=== PATIENT | male | born 1995 | race Caucasian/White ===

== ENCOUNTER 2019-09-16 18:31 | Emergency (ER) | payer SELFPAY ==
[~2019-09-16] VITALS: Ht 172.7 cm; Wt 69.9 kg
[2019-09-16 19:08] VITALS: BP 139/77
--- NOTE | 2019-09-16 19:09 | NUR ---
PT TAKEN BACK TO LOBBY
--- NOTE | 2019-09-16 21:07 | NUR ---
PATIENT CALLED TO BED NO RESPONSE PATIENT LEFT WITHOUT BEING SEEN BY DR. CASH. NO FURTHER CARE PROVIDED FOR PATIENT.
--- NOTE | 2019-09-16 21:12 | NUR ---
CALLED FOR THE SECOND TIME , NO RESPONSE
--- NOTE | 2019-09-16 21:17 | NUR ---
CALLED FOR THE THIRD TIME , NO RESPONSE
== END 2019-09-16 21:07 | disposition left against medical advice (07) ==
LOC: MED 18:31
DX: S61.218A Laceration without foreign body of other finger without damage to nail, initial encounter (principal); Z53.21 Procedure and treatment not carried out due to patient leaving prior to being seen by health care provider; X58.XXXA Exposure to other specified factors, initial encounter; Y93.89 Activity, other specified; Y92.89 Other specified places as the place of occurrence of the external cause; Y99.8 Other external cause status

== ENCOUNTER 2019-09-17 13:38 | Emergency (ER) | payer SELFPAY ==
[~2019-09-17] VITALS: Ht 177.8 cm; Wt 70.3 kg
[2019-09-17 13:48] VITALS: BP 152/85
--- NOTE | 2019-09-17 14:03 | NUR ---
PT TO CHAIR A WITH STEADY GAIT
--- NOTE | 2019-09-17 14:05 | NUR ---
PAIN 4/10 TO SITE
--- NOTE | 2019-09-17 14:05 | NUR ---
C/O R FINGER PAIN POST LACERATION FROM OCEAN RESCUE LIEUTENANT X 1 DAY. APPROX 3 CM LACERATION TO 2ND AND 3RD DIGITS. NO ACTIVE BLEEDING AT THIS TIME. +CMS. PT ALERT AND AWAKE, VS STABLE. PT IS FRISIAN SPEAKING
[2019-09-17] MEDS ORDERED: BACITRACIN OINT 500 UNITS/GM PKT TP ONE ×2 (14:20)
--- NOTE | 2019-09-17 14:34 | NUR ---
DUNG EMT IRRIGATED SITE
--- NOTE | 2019-09-17 14:34 | NUR ---
RIGHT HAND 2ND AND 3RD DIGIT DIANA TAPE APPLIED BY DUNG EMT. PULSES WNL
--- NOTE | 2019-09-17 14:49 | NUR ---
NADR TO TOPICAL BACITRACIN. PAIN 4/10
[2019-09-17 14:50] VITALS: BP 149/78
--- NOTE | 2019-09-17 14:50 | NUR ---
Patient discharged with v/s stable. Written INSTRUCTIONS GIVEN IN [place] and verbal after care instructions given and explained REGARDING LACERATION IN [place]. Patient alert, oriented and verbalized understanding of instructions. Ambulatory with steady gait. All questions addressed prior to discharge. ID band removed. Patient advised to follow up with PMD. Rx of TOPICAL BACITRACIN, IBUPROFEN, AND KEFLEX given. Patient educated on indication of medication including possible reaction and side effects. Opportunity to ask questions provided and answered. PT GIVEN EXCUSE FROM PHYSICAL ACTIVTY THROUGH Sep
[2019-09-17] MEDS ORDERED: IBUPROFEN 600 MG TAB PO SCH (15:00)
[2019-09-17] MEDS ORDERED: BACITRACIN OINT 500 UNITS/GM PKT TP SCH (15:00)
== END 2019-09-17 14:50 | disposition home or self-care (01) ==
LOC: MED 13:38
DX: S61.212A Laceration without foreign body of right middle finger without damage to nail, initial encounter (principal); S61.210A Laceration without foreign body of right index finger without damage to nail, initial encounter; W31.9XXA Contact with unspecified machinery, initial encounter; Y93.89 Activity, other specified; Y92.89 Other specified places as the place of occurrence of the external cause; Y99.8 Other external cause status
CPT/HCPCS: 99283

== ENCOUNTER 2019-11-04 15:35 | Inpatient (IN) | payer MEDICAID ==
[~2019-11-04] VITALS: Ht 177.8 cm; Wt 78.9 kg
[2019-11-04 15:36] VITALS: BP 122/98
--- NOTE | 2019-11-04 15:48 | NUR ---
24 y/o M C/C LEFT ANKLE INJURY WITH MARBLE X 5 DAYS AGO. PAIN 04/28. PER PT A ROCK TYPE MARBLE FELL ON ANKLE, PT CAME TO ER [facility] X 2 DAYS AGO AND LEFT WITHOUT BEEN SEEN. PT TAKEN MEDICATION WITH NO RELIEF OF PAIN. PT NKA. NO HX. NO RX. NO N/V/D. LEFT ANKLE AREA WITH REDNESS, SWOLLEN. PT WITH WDL CMS, ROM. SIDE RAIL X1. FAMILY AT BEDSIDE.
[2019-11-04] MEDS ORDERED: NACL 0.9% 1,000 ML IV SCH (15:58)
[2019-11-04] MEDS ORDERED: KETOROLAC 30 MG/ML VIAL IVP ONE (16:00)
--- NOTE | 2019-11-04 16:00 | NUR ---
ERMD AT BEDSIDE
--- NOTE | 2019-11-04 16:11 | NUR ---
LAB AT BEDSIDE
[2019-11-04] MEDS ORDERED: VANCOMYCIN 1,000 MG in DEXTROSE 5% 250 ML IV ONE (16:30)
[2019-11-04] MEDS ORDERED: VANCOMYCIN 1,000 MG VIAL ONE (16:38)
[2019-11-04 16:39] LABS: BASOPHILS # (AUTO) 0.2 K/uL (0.00-0.22); BASOPHILS % (AUTO) 0.9 % (0.0-2.0); EOSINOPHILS # (AUTO) 0.2 K/uL (0-0.4); HEMATOCRIT 41.4 % (36-52); HEMOGLOBIN 14.1 g/dL (12.0-18.0); LYMPHOCYTES # (AUTO) 2.1 K/uL (2.0-11.5); LYMPHOCYTES % (AUTO) 12.6 % (20.5-51.1); MEAN CORPUSCULAR HEMOGLOBIN 31 pg (27-31); MEAN CORPUSCULAR HGB CONC 34 g/dL (33-37); MEAN CORPUSCULAR VOLUME 91.3 fL (80-94); MONOCYTES # (AUTO) 1.2 K/uL (0.8-1.0); MONOCYTES % (AUTO) 7.3 % (1.7-9.3); NEUTROPHILS % (AUTO) 78.2 % (42.2-75.2); PLATELET COUNT (AUTO) 330 K/uL (140-450); RED BLOOD CELL COUNT(AUTO) 4.53 MIL/uL (4.20-6.10); RED CELL DISTRIBUTION WIDTH 12.1 % (11.6-13.7); WHITE BLOOD COUNT (AUTO) 16.6 K/uL (4.8-10.8)
--- NOTE | 2019-11-04 16:47 | NUR ---
PT TAKEN TO CT VIA DANIEL
[2019-11-04 17:06] LABS: ALBUMIN 3.5 g/dL (3.4-5.0); ANION GAP 12.7 (8-16); CARBON DIOXIDE 28.8 mmol/L (21-32); CREATININE 0.6 mg/dL (0.6-1.3); POTASSIUM 3.5 mmol/L (3.5-5.1); TOTAL BILIRUBIN 0.4 mg/dL (0.0-1.0)
[2019-11-04 17:07] LABS: PROTHROMBIN TIME 9.7 secs (10.8-13.4)
[2019-11-04] MEDS ORDERED: HYDROcodone/APAP 7.5/325 MG 1 TAB PO PRN (18:50)
[2019-11-04] MEDS ORDERED: VANCOMYCIN PER PHARMACY MC PRN (18:50)
[2019-11-04] MEDS ORDERED: ACETAMINOPHEN 325 MG TAB PO PRN (18:50)
[2019-11-04] MEDS ORDERED: ONDANSETRON 4 MG/2 ML VIAL IVP PRN (18:50)
--- NOTE | 2019-11-04 19:27 | NUR ---
REPORT GIVEN TO MALINA BROOKS FOR CONTINUITY OF CARE
[2019-11-04 19:33] LABS: FREE T4 (FREE THYROXINE) 0.97 ng/dL (0.76-1.46); MAGNESIUM 1.7 mg/dL (1.8-2.4); PHOSPHORUS 2.9 mg/dL (2.5-4.9); THYROID STIMULATING HORMONE 1.94 uIU/mL (0.34-3.74)
[2019-11-04 20:00] VITALS: BP 114/69
--- NOTE | 2019-11-04 20:00 | NUR ---
RECEIVED PT FROM ER VIA WHEELCHAIR PT CUBAN SPEAKER AAOX4 AMBULATORY WITH QUILL FIXER, IV ON LEFT HAND GAUGE # 22 PATENT, LEFT FOOT CELLULITIS AND SCABS ON LEFT TOES 3TH AND 4TH PT IS ORIENTED TO THE FLOOR CALL LIGHT WITHIN REACH PT ALREADY GOT RADHA
--- NOTE | 2019-11-04 20:00 | NUR ---
Patient will be admitted to care of DR XAVIER. Admited to [facility]. Will go to room 126B. Belongings list completed. Report to PRINCE BROOKS.
[2019-11-04] MEDS: DOCUSATE SODIUM 100 MG GELCAP PO SCH (21:14)
[2019-11-04] MEDS: NACL 0.9% 1,000 ML IV SCH (21:15)
--- NOTE | 2019-11-04 22:00 | NUR ---
PT AFTER EATING HIS DINNER REMAIN STBLE SLEEPING WELL NOT SIGNS OF PAIN NO;JASBIR
[2019-11-05] VITALS: BP 116/69
--- NOTE | 2019-11-05 02:00 | NUR ---
PT VOIDING WELL NOT DISTRESS ;NOTED REMAIN STBLE
[2019-11-05] MEDS ORDERED: MAG SULF 2000 MG/WATER PREMIX 50 ML IV ONE (03:00)
[2019-11-05] MEDS ORDERED: VANCOMYCIN 1GM/DEXT 5% PREMIX 200 ML IV SCH (04:00)
[2019-11-05 04:03] LABS: APPEARANCE,URINE CLEAR (CLEAR); BILIRUBIN,URINE NEGATIVE (NEGATIVE); BLOOD, URINE NEGATIVE (NEGATIVE); COLOR,URINE YELLOW (YELLOW); LEUKOCYTE ESTERASE ,URINE NEGATIVE (NEGATIVE); NITRITE, URINE NEGATIVE (NEGATIVE); UGLUCOSE NEGATIVE (NEGATIVE)
[2019-11-05 04:12] LABS: BARBITURATE, URINE NEG. ng/ml (NEG <=200); BENZODIAZEPINE, URINE NEG. ng/mL (NEG <=200); CANNABINOID, URINE POS. ng/mL (NEG <=50); COCAINE, URINE NEG. ng/mL (NEG <=300); OPIATE, URINE NEG. ng/mL (NEG <=2000); PHENCYCLIDINE SCREEN,URINE NEG. ng/mL (NEG <=25)
--- NOTE | 2019-11-05 05:00 | NUR ---
SPONGE BATH GIVEN LINEN CHANGED IV ON LEFT HAND INFUSING WELL
[2019-11-05 06:24] LABS: BASOPHILS % (AUTO) 0.4 % (0.0-2.0); EOSINOPHILS # (AUTO) 0.3 K/uL (0-0.4); EOSINOPHILS % (AUTO) 2.3 % (0.0-4.0); HEMATOCRIT 38.1 % (36-52); HEMOGLOBIN 13.1 g/dL (12.0-18.0); LYMPHOCYTES # (AUTO) 1.4 K/uL (2.0-11.5); LYMPHOCYTES % (AUTO) 11.5 % (20.5-51.1); MEAN CORPUSCULAR HEMOGLOBIN 31 pg (27-31); MEAN CORPUSCULAR HGB CONC 34 g/dL (33-37); MEAN CORPUSCULAR VOLUME 90.8 fL (80-94); MONOCYTES % (AUTO) 8.5 % (1.7-9.3); NEUTROPHILS # (AUTO) 9.3 K/uL (1.8-7.7); NEUTROPHILS % (AUTO) 77.3 % (42.2-75.2); PLATELET COUNT (AUTO) 271 K/uL (140-450)
[2019-11-05 06:33] LABS: ANION GAP 11.1 (8-16); CARBON DIOXIDE 28.5 mmol/L (21-32); CREATININE 0.7 mg/dL (0.6-1.3); POTASSIUM 4.6 mmol/L (3.5-5.1)
--- NOTE | 2019-11-05 06:46 | NUR ---
PT WILL BE ENDORSED TO DAY SHIFT NURSE FOR D CONTINUE OF CARE
[2019-11-05] MEDS: NACL 0.9% 1,000 ML IV SCH ×2 (07:00→15:34)
[2019-11-05] MEDS ORDERED: IBUPROFEN 800 MG TAB PO PRN (07:05)
--- NOTE | 2019-11-05 07:25 | NUR ---
RECEIVED BEDSIDE REPORT FROM SUPERVISOR WIRE ROPE FABRICATION NURSE PRINCE. PT IS ASLEEP IN BED, NO S/S OF DISTRESS, ON ROOM AIR, IV SITE L HAND 22 G INFUSING MAG-RIDER AT THIS TIME. NOTED L FOOT EDEMA, SLIGHT REDNESS AROUND THE ANKLE, AND DRY SCABBING BELOW THE 2ND AND 3RD TOES. PT C/O MILD LLE PAIN, NOT REQUESTING PAIN MEDS AT THIS TIME. CALL LIGHT IS WITHIN REACH. WILL CONTINUE TO MONITOR.
[2019-11-05 08:00] VITALS: BP 113/69
--- NOTE | 2019-11-05 08:47 | NUR ---
PATIENT HAS BEEN SCREENED AND CATEGORIZED LOW NUTRITION RISK. PATIENT WILL BE SEEN WITHIN 7 DAYS OF ADMISSION. 11/11/[address]
[2019-11-05] MEDS: DOCUSATE SODIUM 100 MG GELCAP PO SCH ×2 (09:15→20:35)
[2019-11-05] MEDS: LACTOBACILLUS RHAMNOSUS GG 1 EACH CAP PO SCH (09:15)
[2019-11-05] MEDS: VANCOMYCIN 1,000 MG in DEXTROSE 5% 250 ML IV SCH ×2 (09:15→20:36)
--- NOTE | 2019-11-05 09:23 | NUR ---
AM MEDS ADMINISTERED. PT TOLERATED WELL. 0800 VANCOMYCIN IS INFUSING. PT IS RESTING COMFORTABLY IN BED.
--- NOTE | 2019-11-05 10:30 | NUR ---
Area Counselor Note: Basic Screen: Yes High Risk DC Screen Yes Name: REID CHAU Home Relationship: MOTHER Pre-Admission Living Arrangements: Lives with Other Other: N/A Prior ADL Independent Current Home Health Name/Tel: N/A Current DME/02 Name/Tel: N/A Current Hospice Name/Tel: N/A Current Dialysis Name/Tel: N/A Healthcare Decision Maker: Patient Advance Directive No - REFUSED Physician Orders for Life Sustaining Treatment Form No Patient/Family Have Educational Needs No Information Taught: Community Resources Person Taught: Patient Teaching Tools: Verbal Factors Affecting Learning: None Participation Level: Active Evaluation: Verbalizes Understanding Needs Additional Education: No Discipline: Case Mgt/Social Svcs Tentative Discharge Plan/Destination: No Needs Identified Will require assistance post discharge: No Referred to [employer]: No Tentative Discharge Plan Summary: Patient is a 24-year-old male admitted for left foot cellulitis. Patient has no significant PMHX. Patient was admitted from home where he lives iwth his mother. SW met with patient at bedside to verify demographics with patient with СВЕТЛАНА Shoemaker to translate to Portuguese. Patient reports living with his mother Reid Chau. Patient reports no history of mental health and a history of marijuana and methamphetamine abuse. SW provided substance abuse resources. Patient's tentative discharge plan is to return home. No further needs identified. Signature: LUIGI Ventura Date: Nov 05, 2019 Time: 10:29
[2019-11-05 10:43] LABS: MAGNESIUM 1.7 mg/dL (1.8-2.4); PHOSPHORUS 2.9 mg/dL (2.5-4.9)
--- NOTE | 2019-11-05 10:44 | NUR ---
PT C/O 06/28 PAIN IN THE L FOOT. FOOT IS VISIBLY MORE SWOLLEN AND RED THAN THIS AM. I CALLED DR JASMINE TO SEE IF HE CAN ORDER SOMETHING STRONG FOR PT'S PAIN. PER MD, PT CAN ONLY HAVE MOTRIN OR TYLENOL FOR PAIN AT THIS TIME. MOTRIN PRN ADMINISTERED. WILL REASSESS PT WITHIN AN HOUR.
--- NOTE | 2019-11-05 12:52 | NUR ---
PT ATE 100% OF LUNCH, NO C/O PAIN AT THIS TIME. PT IS COMFORTABLE.
[2019-11-05] MEDS ORDERED: MAGNESIUM OXIDE 400 MG TAB PO SCH (14:00)
--- NOTE | 2019-11-05 15:28 | NUR ---
DISCHARGE PLANNING: THIS IS A 24 Y/O MALE PATIENT FROM HOME, WHO CAME IN DUE TO LEFT ANKLE PAIN X 7 DAYS. NO PERTINENT MEDICAL HISTORY. INITIAL DIAGNOSIS OF LEFT FOOT CELLULITIS. CURRENT LABS INCLUDE WBC 12.0, H/H 13.1/38.1 AND LIPASE 71. ON VANCOMYCIN. SURGICAL CONSULT IN PLACE. DC PLAN BACK TO HOME ONCE STABLE. Addendum: 11/06/19 at 1522 by Zuly Gee CM CURRENT LABS INCLUDE WBC 9.6, H/H 13.7/39.9, NA/K 141/4.5, BUN/CREA 13/0.8 AND MAG 1.7. BLOOD C/S SHOWED NO GROWTH AFTER 24 HOURS. URINE C/S PENDING. SURGICAL CONSULT WITH DR BEACH IN PLACE. S/P I&D AND DEBRIDEMENT OF LEFT FOOT ABSCESS. ON VANCOMYCIN AND ZOSYN. DC PLAN PENDING ON PATIENT'S RESPONSE TO TREATMENT.
[2019-11-05 16:00] VITALS: BP 102/49
--- NOTE | 2019-11-05 17:46 | NUR ---
PT SLEEPING COMFORTABLY, NO C/O PAIN OR S/S OF DISTRESS AT THIS TIME.
--- NOTE | 2019-11-05 19:10 | NUR ---
ENDORSED PT TO DATA DESIGNER NURSE IN STABLE CONDITION.
--- NOTE | 2019-11-05 19:30 | NUR ---
RECEIVED BEDSIDE REPORT FROM DAY SHIFT NURSE. PATIENT IS AWAKE, ALERT, AND COOPERATIVE. RESPIRATION EVEN UNLABORED ON ROOM AIR. NO DISTRESS NOTED. SKIN IS WARM AND DRY. IV PATENT AND INTACT. PLAN OF CARE WAS DISCUSSED. ALL SAFETY MEASURES IN PLACE. BED IS AT LOW POSITION. CALL LIGHT WITHIN REACH AND VERBALIZES ITS USE. WILL CONTINUE TO MONITOR.
--- NOTE | 2019-11-05 20:10 | NUR ---
INITIAL ASSESSMENT DONE. LEFT FOOT CELLULITIS INTACT AND SWOLLEN NOTED. WILL CONTINUE TO MONITOR.
--- NOTE | 2019-11-05 20:39 | NUR ---
ALL SCHEDULED MEDS WERE GIVEN PER ORDER. NO ASE NOTED. WILL CONTINUE TO MONITOR.
--- NOTE | 2019-11-05 22:52 | NUR ---
CHECKED PATIENT. PATIENT IN BED AWAKE RESPIRATION EVEN UNLABORED ON ROOM AIR. NO DISTRESS NOTED. WILL CONTINUE TO MONITOR.
[2019-11-06] VITALS: BP 104/55
[2019-11-06] MEDS ORDERED: PIPERACILLIN/TAZOBACTAM 4.5 GM VIAL IV ONE ×2 (00:15→05:34)
[2019-11-06] MEDS: PIPERACILLIN/TAZOBACTAM 4.5 GM in DEXTROSE 5% 100 ML IV SCH ×5 (00:19→18:59)
--- NOTE | 2019-11-06 00:25 | NUR ---
VITALS WERE TAKEN. 1ST DOSE OF ZOSYN IV GIVEN PER ORDER. WILL CONTINUE TO MONITOR.
[2019-11-06] MEDS: NACL 0.9% 1,000 ML IV SCH ×4 (00:44→21:15)
--- NOTE | 2019-11-06 02:30 | NUR ---
CHECKED PATIENT. PATIENT SLEEPING RESPIRATION EVEN UNLABORED ON ROOM AIR. NO DISTRESS NOTED. WILL CONTINUE TO MONITOR.
--- NOTE | 2019-11-06 04:46 | NUR ---
PATIENT IS HUNGRY ASKING FOR FOOD. REMINDED HIM THAT HIS HAVING A SURGERY TODAY AND THAT HE NEEDS TO REMAIN NPO. VERBALIZES UNDERSTANDING. WILL CONTINUE TO MONITOR.
--- NOTE | 2019-11-06 07:15 | NUR ---
ENDORSED PATIENT TO DAY SHIFT NURSE. PATIENT IS IN STABLE CONDITION.
--- NOTE | 2019-11-06 07:25 | NUR ---
RECEIVED REPORT FROM DREDGE HAND NURSE FOR CONTINUATION OF CARE.
[2019-11-06 08:00] VITALS: BP 163/57
[2019-11-06 08:25] LABS: BASOPHILS # (AUTO) 0.1 K/uL (0.00-0.22); BASOPHILS % (AUTO) 0.9 % (0.0-2.0); EOSINOPHILS # (AUTO) 0.4 K/uL (0-0.4); HEMATOCRIT 39.9 % (36-52); HEMOGLOBIN 13.7 g/dL (12.0-18.0); LYMPHOCYTES # (AUTO) 1.2 K/uL (2.0-11.5); LYMPHOCYTES % (AUTO) 12.4 % (20.5-51.1); MEAN CORPUSCULAR HEMOGLOBIN 32 pg (27-31); MEAN CORPUSCULAR HGB CONC 34 g/dL (33-37); MEAN CORPUSCULAR VOLUME 91.8 fL (80-94); MONOCYTES # (AUTO) 0.8 K/uL (0.8-1.0); MONOCYTES % (AUTO) 7.9 % (1.7-9.3); NEUTROPHILS # (AUTO) 7.2 K/uL (1.8-7.7); NEUTROPHILS % (AUTO) 74.8 % (42.2-75.2); PLATELET COUNT (AUTO) 304 K/uL (140-450); RED BLOOD CELL COUNT(AUTO) 4.35 MIL/uL (4.20-6.10); RED CELL DISTRIBUTION WIDTH 12.3 % (11.6-13.7); WHITE BLOOD COUNT (AUTO) 9.6 K/uL (4.8-10.8)
[2019-11-06 08:40] LABS: ANION GAP 10.2 (8-16); CARBON DIOXIDE 31.3 mmol/L (21-32); CREATININE 0.8 mg/dL (0.6-1.3); POTASSIUM 4.5 mmol/L (3.5-5.1)
[2019-11-06 09:03] LABS: MAGNESIUM 1.7 mg/dL (1.8-2.4); PHOSPHORUS 3.8 mg/dL (2.5-4.9)
[2019-11-06] MEDS ORDERED: SEVOFLURANE 250 ML BTL INH ONE (09:22)
[2019-11-06] MEDS ORDERED: PROPOFOL 200 MG/20 ML VIAL IV ONE (09:22)
[2019-11-06] MEDS ORDERED: MIDAZOLAM 2 MG/2 ML VIAL ONE (09:22)
[2019-11-06] MEDS ORDERED: fentaNYL 0.05 MG/ML VIAL ONE (09:22)
[2019-11-06] MEDS ORDERED: BUPIVACAINE-MPF 0.25% 30 ML VIAL INJ ONE (09:45)
[2019-11-06] MEDS ORDERED: ONDANSETRON 4 MG/2 ML VIAL IVP PRN (09:50)
[2019-11-06] MEDS ORDERED: HYDROmorphone 1 MG/ML AMP IVP PRN ×2 (09:50→10:05)
[2019-11-06] MEDS ORDERED: MORPHINE SULFATE 2 MG/ML SYR IVP PRN (10:05)
[2019-11-06] MEDS ORDERED: MORPHINE SULFATE 4 MG/ML SYR IV PRN (10:05)
[2019-11-06] MEDS ORDERED: HYDROcodone/APAP 5/325 MG 1 TAB TAB PO PRN (10:05)
--- NOTE | 2019-11-06 11:00 | NUR ---
RETURNED FROM OR FOR I&D, UNCOMPLICATED PER OR NURSE. PATIENT STARTED ON VANCOMYCIN, TOLERATING WELL. PATIENT REPORTS MINOR PAIN, BUT REFUSES PAIN MEDICATION. PATIENT REPORTS FEELING DROWSY. LEFT ANKLE IS WRAPPED AND PACKED. WILL CONTINUE TO MONITOR.
[2019-11-06] MEDS: VANCOMYCIN 1,000 MG in DEXTROSE 5% 250 ML IV SCH ×2 (11:05→18:44)
[2019-11-06] MEDS: LACTOBACILLUS RHAMNOSUS GG 1 EACH CAP PO SCH (11:06)
[2019-11-06] MEDS: DOCUSATE SODIUM 100 MG GELCAP PO SCH ×2 (11:07→21:14)
[2019-11-06] MEDS ORDERED: MAG SULF 2000 MG/WATER PREMIX 50 ML IV SCH (11:09)
--- NOTE | 2019-11-06 13:00 | NUR ---
PATIENT IS RESTING IN BED, REPORTS LOW PAIN IN THE LEFT FOOT/ANKLE SP I&D. PATIENT IS RECEIVING IV MAGNESIUM FOR LOW MAGNESIUM 1.7. PATIENT IS TOLERATING WELL AT THIS TIME. WILL CONTINUE TO MONITOR.
--- NOTE | 2019-11-06 14:12 | NUR ---
Late entry. Confirmed with RN that Vancomycin IV completed at 181
--- NOTE | 2019-11-06 15:00 | NUR ---
PATIENT REPORTS PAIN AT THIS TIME DUE TO MAGNESIUM IV, REPORTS SEVERE PAIN, PAIN MEDICATION GIVEN, TOLERATED WELL. HELD MAGNESIUM, APPROXIMATELY 20 ML'S LEFT TO ADMINISTER. WILL CONTINUE TO MONITOR.
[2019-11-06 16:00] VITALS: BP 120/58
--- NOTE | 2019-11-06 19:25 | NUR ---
BEDSIDE SHIFT REPORT GIVEN TO ADMISSIONS CLERK NURSE FOR CONTINUATION OF CARE.
--- NOTE | 2019-11-06 19:26 | NUR ---
RECEIVED BEDSIDE REPORT FROM DAY SHIFT NURSE MIREILLE RN, PT STABLE, NO DISTRESS NOTED, IV TO L WRIST 22G PATENT INTACT, PT ON ROOM AIR, NO SOB NOTED, PT SLEEPING, INITIAL ASSESSMENT DONE, ALL SAFETY PRECAUTION MET, CALL LIGHT WITHIN REACH, WILL CONTINUE TO MONITOR.
--- NOTE | 2019-11-06 20:40 | NUR ---
PT REFUSED IVF, PT REFUSED ANY MEDICATION THROUGH IV, ATTEMPT TO EXPLAIN TO PT USING BOX TRUCK WASHER #[id number], EXPLAINED THAT HE NEEDS IV INFUSION FOR HIS ANTIBIOTICS, PT YELLED AND REFUSED MEDICATION, EXPLAINED TO PT THAT THE INFECTION COULD GO TO HIS BLOOD STREAM AND HE CAN FROM IT, PT STILL REFUSED, NOTIFIED DR. BANDAR DR. STATED UNDERSTANDING, TO ATTEMPT TO ASK THE PT AGAIN WHEN MEDICATION DUE. PT SLEEPING, NO DISTRESS NOTED, CALL LIGHT WITHIN REACH, WILL CONTINUE TO MONITOR.
--- NOTE | 2019-11-06 21:14 | NUR ---
DUE MEDICATION ADMINISTERED, PT TOLERATED WELL, NO DISTRESS NOTED, CALL LIGHT WITHIN REACH, WILL CONTINUE TO MONITOR.
[2019-11-07] VITALS: BP 101/67
--- NOTE | 2019-11-07 00:07 | NUR ---
PT REFUSED IV MEDICATION, NO DISTRESS NOTED, SLEEPING, NOTIFIED DR. BANDAR SERNA STATED UNDERSTANDING, PT RESTING, CALL LIGHT WITHIN REACH, WILL CONTINUE TO MONITOR.
[2019-11-07] MEDS: VANCOMYCIN 1,000 MG in DEXTROSE 5% 250 ML IV SCH ×2 (02:00→10:17)
--- NOTE | 2019-11-07 02:01 | NUR ---
PT REFUSED IV MEDICATION, PT SLEEPING, EDUCATE PT IMPORTANCE OF MEDICATION, PT STILL REFUSED, PT SLEEPING, NO DISTRESS NOTED, CALL LIGHT WITHIN REACH, WILL CONTINUE TO MONITOR.
--- NOTE | 2019-11-07 06:03 | NUR ---
PT WANTS TO LEAVE HOSPITAL AGAINST MEDICAL ADVICE, PT ALREADY TALKED TO DR. SINGH, EXPLAINED DISADVANTAGE OF LEAVING AGAINST MEDICAL ADVICE, PT STATED UNDERSTANDING BUT STILL WANTS TO LEAVE. PT STABLE, NO DISTRESS NOTED, WOUND CLEAN DRY AND INTACT. IV TAKEN OUT. PT SIGNED AMA FORM.
--- NOTE | 2019-11-07 06:16 | NUR ---
PT CHANGED HIS MIND AND STATED HE WILL STAY. PT RESTING, NO DISTRESS NOTED, CALL LIGHT WITHIN REACH.
--- NOTE | 2019-11-07 06:30 | NUR ---
NEW IV INSERTED TO L FA 22G PATENT INTACT, INFUSING WELL, NO DISTRESS NOTED, CALL LIGHT WITHIN REACH, WILL CONTINUE TO MONITOR.
[2019-11-07] MEDS: PIPERACILLIN/TAZOBACTAM 4.5 GM in DEXTROSE 5% 100 ML IV SCH ×3 (06:32)
[2019-11-07 07:24] LABS: MAGNESIUM 1.7 mg/dL (1.8-2.4); PHOSPHORUS 3.4 mg/dL (2.5-4.9)
[2019-11-07] MEDS: NACL 0.9% 1,000 ML IV SCH (07:24)
--- NOTE | 2019-11-07 07:24 | NUR ---
ENDORSED PT TO DAY SHIFT NURSE NORBETRO RN, PT STABLE, NO DISTRESS NOTED, CALL LIGHT WITHIN REACH.
--- NOTE | 2019-11-07 07:25 | NUR ---
RECEIVED BEDSIDE REPORT FROM PM RN PT AWAKE IN BED PT APPEARS STABLE AND IN NO APPARENT DISTRESS. ALL SAFETY MEASURES ARE IN PLACE WILL CONTINUE TO MONITOR. IVF INFUSING IV SITE APPEARS PATENT AND SHOWS NO SIGNS OF INFILTRATION OR INFLAMMATION.
[2019-11-07 07:29] LABS: ANION GAP 10.5 (8-16); CREATININE 0.8 mg/dL (0.6-1.3); POTASSIUM 4.5 mmol/L (3.5-5.1)
[2019-11-07 07:32] LABS: BASOPHILS # (AUTO) 0.1 K/uL (0.00-0.22); BASOPHILS % (AUTO) 0.6 % (0.0-2.0); EOSINOPHILS # (AUTO) 0.3 K/uL (0-0.4); EOSINOPHILS % (AUTO) 3.3 % (0.0-4.0); HEMATOCRIT 45.2 % (36-52); HEMOGLOBIN 15.5 g/dL (12.0-18.0); LYMPHOCYTES # (AUTO) 1.3 K/uL (2.0-11.5); LYMPHOCYTES % (AUTO) 15.2 % (20.5-51.1); MEAN CORPUSCULAR HEMOGLOBIN 32 pg (27-31); MEAN CORPUSCULAR HGB CONC 34 g/dL (33-37); MEAN CORPUSCULAR VOLUME 91.9 fL (80-94); MONOCYTES # (AUTO) 0.7 K/uL (0.8-1.0); NEUTROPHILS # (AUTO) 6.3 K/uL (1.8-7.7); NEUTROPHILS % (AUTO) 72.9 % (42.2-75.2); PLATELET COUNT (AUTO) 326 K/uL (140-450); RED BLOOD CELL COUNT(AUTO) 4.92 MIL/uL (4.20-6.10); RED CELL DISTRIBUTION WIDTH 12.2 % (11.6-13.7); WHITE BLOOD COUNT (AUTO) 8.7 K/uL (4.8-10.8)
[2019-11-07 08:15] VITALS: BP 112/76
[2019-11-07] MEDS: DOCUSATE SODIUM 100 MG GELCAP PO SCH (08:44)
[2019-11-07] MEDS: LACTOBACILLUS RHAMNOSUS GG 1 EACH CAP PO SCH (08:44)
[2019-11-07] MEDS ORDERED: AMOX-1000 PO (09:01)
[2019-11-07] MEDS ORDERED: LACT-81 PO (09:01)
[2019-11-07] MEDS ORDERED: ACET-1182 PO (09:03)
--- NOTE | 2019-11-07 09:15 | NUR ---
FREQUENT ROUNDING ON PT PT AWAKE IN BED PT APPEARS STABLE AND IN NO APPARENT DISTRESS. ALL SAFETY MEASURES ARE IN PLACE WILL CONTINUE TO MONITOR
--- NOTE | 2019-11-07 10:18 | NUR ---
GINA REMY IVP SCANNER BROKEN ON WOW 8 VERIFIED MEDICATION AND DOSAGE. WILL CONTINUE TO MONITOR PT
--- NOTE | 2019-11-07 12:01 | NUR ---
WOUND CONSULT TO RIGHT FOOT S/P I&D ASSESSMENT START BUT NOT COMPLETE. REPORT TO DR. SINGH THE SURGICAL WOUND WITH GAUZES PACKING REMAIN FRESH AND SEEPING SMALL AMOUNT OF SANGUINOUS DRAINAGE, NO ODOR, NARCISA WOUND ERYTHEMA AND SLIGHTLY SWELLING OBSERVED. PER DR. SINGH, REINFORCE DRESSING, AND TEACH PT. WOUND CARE, WILL HAVE PT. FOLLOW UP WITH SURGEON. SPOKE TO COMPRESS MACHINE OPERATOR SHE WILL REQUEST HOME HEALTH FOR WOUND CARE. WOUND CARE TEACHING INSTRUCTIONS TAUGHT TO PT. INCLUDING MONITOR S/S OF INFECTION WITH ALL QUESTION ANSWERED. PRIMARY RN AT BEDSIDE ,WILL DISCHARGE PT. WITH WOUND CARE SUPPLIES. TRIED TO USE BLUE PHONE AND UNABLE TO CONNECT, STAFF NISHANT TRANSLATED IN CRO[place]. PT. VERBALIZES UNDERSTANDING. RECOMMENDATION: -RIGHT FOOT SURGICAL WOUND FLUSH WITH NS. PAT DRY, PACK WITH ADAPTIC DRESSING COVER WITH DRY DRESSING AND WRAP WITH KERLIX ROLL DAILY AND PRN IF SOILING.
--- NOTE | 2019-11-07 12:05 | NUR ---
ATTEMPTED TO DO WOUND CARE WITH [place]ON [place] ENGINEER. BARON STATED THE I&D IS TO FRESH. INFORMED DR. SINGH HE STATED WE WILL HAVE THE PATIENT FOLLOW UP WITH DR. BEACH EARLIER THAN A WEEK. AWA GRAPPLE CREW LEADER WILL ARRANGE FOR HOME HEALTH. HAD CHANNEL PARTNERS INFORM PATIENT AND ANSWER ALL QUESTIONS. SINCE I ADMINISTERED DILAUDID TO PATIENT FOR WOUND CHANGE INFORMED PT TO WAIT ABOUT 2 HOURS BEFORE ARRANGING FOR TRANSPORTATION SPECIALIST/ PT STATED HE WOULD CALL HIS MOM AND UPDATE HER.
--- NOTE | 2019-11-07 13:45 | NUR ---
USED COURTESY CLERK TO PROVIDE EDUCATION TO PATIENT ABOUT PICKING UP HIS ANTIBIOTIC AT [facility] ON . EDUCATED PATIENT TO FOLLOW UP WITH DR. BEACH PROVIDED CONTACT INFORMATION. PATIENT HAS A FOLLOW UP APPOINTMENT WITH HIS PRIMARY CARE PROVIDER AT [facility] ON . ANSWERED ALL QUESTIONS FOR PATIENT. GOT PATIENTS PERSONAL BELONGINGS FROM SECURITY. WHEELED PT OUT VIA WHEELCHAIR PT LEFT WITH ALL PERSONAL BELONGINGS. IV REMOVED IV TIP INTACT. REMOVED ID BAND
== END 2019-11-07 13:50 | disposition home or self-care (01) | DRG 720 ==
LOC: MED 15:35 → MMU 18:50 → MTU 11-06 05:15
PROVIDERS: ADMIT General Practice; ATTEND General Practice
PROC: 0JBR0ZZ Excision of Left Foot Subcutaneous Tissue and Fascia, Open Approach (ICD-10-PCS; principal; 2019-11-06 08:35)
DX: A41.9 Sepsis, unspecified organism (principal); E83.42 Hypomagnesemia; L03.116 Cellulitis of left lower limb; L02.612 Cutaneous abscess of left foot; F15.10 Other stimulant abuse, uncomplicated; F17.210 Nicotine dependence, cigarettes, uncomplicated; F12.10 Cannabis abuse, uncomplicated
CPT/HCPCS: 36415; 71045; 73700; 76881; 80048; 80053; 80202; 80305; 81003; 82150; 83036; 83605; 83690; 83735; 83880; 84100; 84439; 84443; 84484; 85025; 85610; 85730; 87040; 87070; 87075; 87081; 87086; 87205; 88304; 93005; 93970; 96365; 96375; 99285; J1170; J1885; J2250; J2270; J2543; J2704; J3010; J3370; J3475; J3490; J7030; J7060; Q0092

== ENCOUNTER 2019-12-06 12:43 | Emergency (ER) | payer MEDICAID ==
[~2019-12-06] VITALS: Ht 180.3 cm; Wt 65.8 kg
[~2019-12-06 12:43] MED LIST: ACET-1182 PO; AMOX-1000 PO; LACT-81 PO
[2019-12-06 13:00] VITALS: BP 125/75
--- NOTE | 2019-12-06 13:26 | NUR ---
24 Y/O MALE C/O REQUESTING MORE MEDICAITON FOR LEFT FOOT SWELLING/LACERATION/PAIN. PT CUT LEFT ANKLE 1 MONTH AGO AND WENT TO A HOSPITAL AND GOT MEDICATION AND IS OUT AND NEEDS A MEDICATION REFILL. PT STATES PAIN IS 3/10 AND IS ABLE TO AMBUALTE WITH MINIMAL PAIN .DENIES N/V/D; SKIN IS PINK/WARM/DRY; AAOX4 WITH EVEN AND STEADY GAIT;T DENIES ANY FEVER, CP, SOB, OR COUGH AT THIS TIME;VSS; PATIENT POSITIONED FOR COMFORT; HOB ELEVATED; BEDRAILS UP X1; BED DOWN AND WHEELS LOCKED. MEDICAL HX: PT DENIES NKA
--- NOTE | 2019-12-06 13:28 | NUR ---
MAICOL MINAYA AT BEDSIDE EXAMINING PT
[2019-12-06] MEDS ORDERED: KETOROLAC 30 MG/ML VIAL IM ONE (13:30)
[2019-12-06] MEDS ORDERED: cefTRIAXone 1,000 MG in LIDOCAINE MPF 1% 2.1 ML IM ONE (13:30)
--- NOTE | 2019-12-06 13:50 | NUR ---
PT RESTING IN BED IN POSITION OF COMFORT. 1 SIDERAIL UP, BED LOW AND LOCKED, VSS. WILL CONTINUE TO MONITOR.
[2019-12-06] MEDS ORDERED: cefTRIAXone 1,000 MG VIAL ONE (13:56)
[2019-12-06] MEDS ORDERED: LIDOCAINE MPF 1% 5 ML ONE (13:57)
[2019-12-06 14:18] VITALS: BP 125/75
--- NOTE | 2019-12-06 14:18 | NUR ---
Patient discharged with v/s stable. Written and verbal after care instructions given and explained. Patient alert, oriented and verbalized understanding of instructions. Ambulatory with steady gait. All questions addressed prior to discharge. ID band removed. Patient advised to follow up with PMD. Rx of KEFLEX/IBUPROFEN/BACTRIM given. Patient educated on indication of medication including possible reaction and side effects. Opportunity to ask questions provided and answered.
== END 2019-12-06 14:18 | disposition home or self-care (01) ==
LOC: MED 12:43
DX: L03.116 Cellulitis of left lower limb (principal); Z79.899 Other long term (current) drug therapy
CPT/HCPCS: 73620; 96372; 99284; J0696; J1885; J2001; Q0092

== ENCOUNTER 2019-12-16 15:54 | Emergency (ER) | payer MEDICAID ==
[~2019-12-16] VITALS: Ht 177.8 cm; Wt 65.8 kg
[2019-12-16 16:04] VITALS: BP 138/78
[2019-12-16] MEDS ORDERED: LIDOCAINE/EPI 1% 1:100000 20 ML VIAL INJ ONE (16:25)
[2019-12-16] MEDS ORDERED: BACITRACIN OINT 500 UNITS/GM PKT TP ONE ×2 (17:34→17:35)
[2019-12-16 17:43] VITALS: BP 131/75
== END 2019-12-16 17:43 | disposition home or self-care (01) ==
LOC: MED 15:54
DX: S61.411A Laceration without foreign body of right hand, initial encounter (principal); Z79.1 Long term (current) use of non-steroidal anti-inflammatories (NSAID); Z79.899 Other long term (current) drug therapy; Z79.2 Long term (current) use of antibiotics; W26.0XXA Contact with knife, initial encounter; Y93.89 Activity, other specified; Y92.89 Other specified places as the place of occurrence of the external cause; Y99.8 Other external cause status
CPT/HCPCS: 12004; 90471; 90715; 99283; J2001